=== PATIENT | male | born 1985 | race Caucasian/White ===

== ENCOUNTER 2017-04-16 18:41 | Emergency (ER) | payer OTHER ==
[2017-04-16 18:46] VITALS: BP 149/87; PULSE 83; RESP 20; TEMP 98.9; O2SAT 99
--- NOTE | 2017-04-16 18:55 | ED PDOC ---
HPI: General Adult Time Seen by Provider: 04/16/17 18:48 Chief Complaint (Nursing): Abnormal Skin Integrity Chief Complaint (Provider): finger laceration History Per: Patient History/Exam Limitations: no limitations Additional Complaint(s): 31 Year old right hand dominant male presents to the ED for a chief complaint of a laceration to right 5th digit. Patient reports today he was cutting lettuce with a knife at work and the knife moved and he cut his finger. He denies any numbness or tingling to affected area. He is not sure of last tetanus. PMD: None. Past Medical History Reviewed: Historical Data, Nursing Documentation, Vital Signs Vital Signs: Last Vital Signs Temp 98.9 F 04/16/17 18:44 Pulse 83 04/16/17 18:44 Resp 20 04/16/17 18:44 BP 149/87 04/16/17 18:44 Pulse Ox 99 04/16/17 19:21 - Medical History PMH: No Chronic Diseases - Surgical History Surgical History: No Surg Hx - Family History Family History: States: No Known Family Hx - Living Arrangements Living Arrangements: With Family - Social History Current smoker - smoking cessation education provided: No Alcohol: None Drugs: Denies - Immunization History Hx Tetanus Toxoid Vaccination: No (not sure of last tetanus) - Allergies Allergies/Adverse Reactions: Allergies Allergy/AdvReac Type Severity Reaction Status Date / Time No Known Allergies Allergy Verified 04/16/17 18:46 Review of Systems ROS Statement: Except As Marked, All Systems Reviewed And Found Negative Musculoskeletal: Positive for: Other (laceration to right 5th digit) Physical Exam - Reviewed Nursing Documentation Reviewed: Yes Vital Signs Reviewed: Yes - Physical Exam Appears: Positive for: Well, Non-toxic, No Acute Distress Skin: Positive for: Normal Color Eye Exam: Positive for: Normal appearance Cardiovascular/Chest: Positive for: Regular Rate, Rhythm Respiratory: Positive for: Normal Breath Sounds Extremity: Positive for: Normal ROM, Other (1 cm superficial laceration to palmar aspect of right 5th digit. Mild active bleeding. Full range of motion of affected digit with normal distal sensation, fingernail intact) Neurologic/Psych: Positive for: Alert, Oriented - ECG O2 Sat by Pulse Oximetry: 99 (RA) Pulse Ox Interpretation: Normal Medical Decision Making Medical Decision Makin: Initial Impression: Superficial finger laceration Initial Plan: * Gel foam dressing * Tetanus booster Wound cleansed with NS and betadine, gel foam applied to wound, secured with gauze wrap, N/V intact s/p placement. Patient was given wound care instructions. Scribe Attestation: Documented by Alex Malcolm acting as a scribe for Debora Douglas PA-C. Provider Scribe Attestation: All medical record entries made by the Scribe were at my direction and personally dictated by me. I have reviewed the chart and agree that the record accurately reflects my personal performance of the history, physical exam, medical decision making, and the department course for this patient. I have also personally directed, reviewed, and agree with the discharge instructions and disposition. Disposition - Clinical Impression Clinical Impression: Finger laceration, Requires a booster tetanus - Patient ED Disposition Is Patient to be Admitted: No Counseled Patient/Family Regarding: Diagnosis, Need For Followup - Disposition Referrals: [facility] [Outside] Disposition: Routine/Home Disposition Time: 19:49 Condition: STABLE Additional Instructions: KEEP DRESSING IN PLACE FOR 2 DAYS. AFTER 2 DAYS REMOVE DRESSING AND EXCESS FOAM. OVER THE COUNTER MOTRIN FOR PAIN RELIEF NEEDED. FOLLOW UP WITH CLINIC IN 2-3 DAYS. Instructions: Finger Laceration (ED), Diphtheria/Acellular Pertussis/Tetanus Booster Vaccine (Tdap) (Injection) Forms: [employer] (Swazi) Print Language: FRENCH
[2017-04-16] MEDS ORDERED: Absorbable Gelatin Sponge Size 12-7 TP STA (19:16)
[2017-04-16] MEDS ORDERED: Absorbable Gelatin Sponge Size 12-7 ONE (19:20)
== END 2017-04-16 21:01 | disposition home or self-care (01) ==
LOC: H.ER 18:41
DX: S61.216A Laceration without foreign body of right little finger without damage to nail, initial encounter (principal); W26.0XXA Contact with knife, initial encounter; Y99.0 Civilian activity done for income or pay; Z23 Encounter for immunization

== ENCOUNTER 2018-04-10 22:09 | Emergency (ER) | payer OTHER ==
[2018-04-10 22:32] VITALS: BP 124/83; PULSE 84; RESP 16; TEMP 98.9; O2SAT 98
[2018-04-10] MEDS ORDERED: Naproxen 500 MG TAB PO STA (23:16)
--- NOTE | 2018-04-10 23:20 | ED PDOC ---
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 Patient reports he recently sustained multiple insect bites to his face and neck over the weekend and reports localized itching. Patient is unsure if the insect bites are contributing to his current symptoms. Patient has been applying Cortizone cream to the bites and last took Advil yesterday for his neck pain with no relief of symptoms. Patient has no other complaints at present and denies recent fever/ chills. PMD: None Past Medical History Reviewed: Historical Data, Nursing Documentation, Vital Signs Vital Signs: Last Vital Signs Temp 98.9 F 04/10/18 22:29 Pulse 84 04/10/18 22:29 Resp 16 04/10/18 22:29 BP 124/83 04/10/18 22:29 Pulse Ox 98 04/10/18 23:53 - Medical History PMH: No Chronic Diseases - Surgical History Surgical History: No Surg Hx - Family History Family History: States: Unknown Family Hx - Social History Current smoker - smoking cessation education provided: No Alcohol: Social Drugs: Denies - Immunization History Hx Tetanus Toxoid Vaccination: No (not sure of last tetanus) - Home Medications Home Medications: Ambulatory Orders Medication Instructions Recorded DiphenhydrAMINE [Benadryl] 25 mg PO Q6 PRN #30 cap 04/10/18 Naproxen 500 mg PO BID PRN #20 tab 04/10/18 - Allergies Allergies/Adverse Reactions: Allergies Allergy/AdvReac Type Severity Reaction Status Date / Time No Known Allergies Allergy Verified 04/10/18 22:29 Review of Systems ROS Statement: Except As Marked, All Systems Reviewed And Found Negative Musculoskeletal: Positive for: Neck Pain ("lump") Skin: Positive for: Other (insect bites) Physical Exam - Reviewed Nursing Documentation Reviewed: Yes Vital Signs Reviewed: Yes - Physical Exam Appears: Positive for: Well, Non-toxic, No Acute Distress Head Exam: Positive for: ATRAUMATIC, NORMOCEPHALIC Skin: Positive for: Normal Color, Warm, Dry (Multiple superificial, scabbed 2mm- 3mm bite like lesions to face and bilateral paracervical region. (-) surrounding erythema (-) drainage (-) warmth (-) discharge) Eye Exam: Positive for: EOMI, PERRL ENT: Positive for: Pharynx Is (clear, uvula midline), Other (Mucus membranes moist. Airway patent, (-) stridor. ). Negative for: Nasal Congestion, Pharyngeal Erythema, Tonsillar Exudate Neck: Positive for: Painless ROM, Supple Cardiovascular/Chest: Positive for: Regular Rate, Rhythm Respiratory: Positive for: Normal Breath Sounds. Negative for: Decreased Breath Sounds, Accessory Muscle Use, Respiratory Distress Gastrointestinal/Abdominal: Positive for: Soft. Negative for: Tenderness, Distended, Guarding Extremity: Positive for: Normal ROM. Negative for: Deformity Lymphatic: Positive for: Other (0mup5ek mobile, mildly tender lymph node to anterior right cervical chain.) Neurologic/Psych: Positive for: Alert, Oriented (x3), Gait (steady in ED). Negative for: Aphasia, Facial Droop - ECG O2 Sat by Pulse Oximetry: 98 (RA) Pulse Ox Interpretation: Normal Medical Decision Making Medical Decision Making: Initial Impression: Lymphadenopathy of neck, insect bites. Plan: -Naproxen 500mg PO -Benadryl 50mg PO (not driving home) -Re-evaluation 2354 On re-evaluation, patient reports improvement of symptoms. On exam, patient remains AAOx3, in no acute distress. On exam, neck is supple, lungs CTA, cardiac RRR, neuro exam shows no focal findings. VSS, stable for discharge. Diagnostic results d/w the patient in great detail. Dx of lymphadenopathy, insect bites d/w the patient. Based on history, exam and diagnostic results plan will be for discharge and outpatient follow up with clinic. Advised to follow up with primary care physician/clinic in 1-2 days without fail. Advised to take medication as prescribed. Return to the emergency room at any time for any new or worsening symptoms. Patient states he fully agrees with and understands discharge instructions. States that he agrees with the plan and disposition. Verbalized and repeated discharge instructions and plan. I have given the patient opportunity to ask any additional questions. Disposition - Clinical Impression Clinical Impression: Insect bites, Lymphadenopathy of head and neck - Patient ED Disposition Is Patient to be Admitted: No Counseled Patient/Family Regarding: Studies Performed, Diagnosis, Need For Followup, Rx Given - Disposition Referrals: [facility] [Outside] Disposition: Routine/Home Disposition Time: 23:55 Condition: STABLE Additional Instructions: La atencin mdica de emergencia que recibi hoy estaba dirigida a althea sntomas agudos. Si le prescribieron algn medicamento, llnelo y tome segn las indicaciones. Althea sntomas pueden tardar varios may en resolverse. Regrese al Departamento de Emergencia si althea sntomas empeoran, no mejoran o si tiene alg n otro problema. Comunquese con gray mdico en 2 may para dirk reevaluacin y seguimiento / o llame a kim de los mdicos / clnicas a los que waddell referido y que figura en el formulario de Informacin de visitas del paciente que se incluye en gray paquete de manish. Traiga todos los documentos que recibi al momento del manish junto con los medicamentos que est tomando en gray visita de seguimiento. Nuestro tratamiento no puede reemplazar la atencin mdica en curso por parte de un proveedor de atencin primaria (PCP) fuera del departamento de emergencias. Prescriptions: DiphenhydrAMINE [Benadryl] 25 mg PO Q6 PRN #30 cap PRN Reason: Itching / Pruritus Naproxen 500 mg PO BID PRN #20 tab PRN Reason: Pain, Moderate (4-7) Instructions: Insect Bites and Stings Forms: [employer] (Turkmen) Print Language: CITIZEN OF [place] - POA Present On Arrival: None
[2018-04-11] MEDS ORDERED: Naproxen 500 MG TAB PO ONE
== END 2018-04-11 00:03 | disposition home or self-care (01) ==
LOC: H.ER 22:09
DX: R59.0 Localized enlarged lymph nodes (principal); S10.96XA Insect bite of unspecified part of neck, initial encounter; W57.XXXA Bitten or stung by nonvenomous insect and other nonvenomous arthropods, initial encounter

== ENCOUNTER 2018-08-26 21:35 | Emergency (ER) | payer OTHER ==
[2018-08-26 21:54] VITALS: BP 131/84; PULSE 74; RESP 18; TEMP 98.4; O2SAT 98
--- NOTE | 2018-08-26 22:08 | ED PDOC ---
HPI: Skin/Bite Injury Time Seen by Provider: 08/26/18 22:00 Chief Complaint (Nursing): Lower Extremity Problem/Injury Chief Complaint (Provider): Abnormal Skin Integrity History Per: Patient History/Exam Limitations: no limitations Onset/Duration Of Symptoms: Days (2x weeks) Current Symptoms Are (Timing): Still Present Quality Of Symptoms: Swollen Severity: Moderate Additional Complaint(s): 32 year old male with no pertinent past medical history presents to the ED for an evaluation of right foot pain that has been ongoing for 2x weeks. Patient notes that he has a blister at the base of his foot, and has been using over the counter wart cream with no relief. PMD: Salma Chavez MD Past Medical History Reviewed: Historical Data, Nursing Documentation, Vital Signs Vital Signs: Last Vital Signs Temp 98.4 F 08/26/18 21:52 Pulse 74 08/26/18 21:52 Resp 18 08/26/18 21:52 BP 131/84 08/26/18 21:52 Pulse Ox 98 08/26/18 21:52 BATSHEVA Report Viewed: Yes - Medical History PMH: No Chronic Diseases - Family History Family History: States: No Known Family Hx - Social History Current smoker - smoking cessation education provided: No Alcohol: None Drugs: Denies - Immunization History Hx Tetanus Toxoid Vaccination: No (not sure of last tetanus) - Home Medications Home Medications: Ambulatory Orders Medication Instructions Recorded DiphenhydrAMINE [Benadryl] 25 mg PO Q6 PRN #30 cap 04/10/18 Naproxen 500 mg PO BID PRN #20 tab 04/10/18 - Allergies Allergies/Adverse Reactions: Allergies Allergy/AdvReac Type Severity Reaction Status Date / Time No Known Allergies Allergy Verified 04/10/18 22:29 Review of Systems ROS Statement: Except As Marked, All Systems Reviewed And Found Negative Musculoskeletal: Positive for: Foot Pain (right foot pain due to blister at base of foot) Physical Exam - Reviewed Nursing Documentation Reviewed: Yes Vital Signs Reviewed: Yes - Physical Exam Appears: Positive for: Well, Non-toxic, No Acute Distress Head Exam: Positive for: ATRAUMATIC, NORMOCEPHALIC Skin: Positive for: Normal Color, Warm, Dry Extremity: Positive for: Other (right base of foot: 3 cm whitened thickened region with swelling with a callus in the center. (-) erythema, (-) signs of in fection) Neurologic/Psych: Positive for: Alert, Oriented (3x) - ECG O2 Sat by Pulse Oximetry: 98 (RA) Pulse Ox Interpretation: Normal Medical Decision Making Medical Decision Makin:00 Initial impression: 32 year old with right foot pain due to a callus. Patient advised to follow up with podiatry clinic for further treatment of callus. Scribe Attestation: Documented by Mary Beth Cao, acting as a scribe for Leta Modi PA-C. Provider Scribe Attestation: All medical record entries made by the Scribe were at my direction and personally dictated by me. I have reviewed the chart and agree that the record accurately reflects my personal performance of the history, physical exam, medical decision making, and the department course for this patient. I have also personally directed, reviewed, and agree with the discharge instructions and disposition. Disposition - Clinical Impression Clinical Impression: Warts of foot - Patient ED Disposition Is Patient to be Admitted: No - Disposition Referrals: Podiatry Clinic [Outside] Disposition: Routine/Home Disposition Time: 22:05 Condition: FAIR Instructions: Warts on the Skin Print Language: GAMBIAN
== END 2018-08-26 23:09 | disposition home or self-care (01) ==
LOC: H.ER 21:35
DX: B07.9 Viral wart, unspecified (principal)